=== PATIENT | male | born 1995 | race Caucasian/White ===

== ENCOUNTER → 2020-12-15 | Outpatient (CLI) | payer OTHER | END | disposition home or self-care (01) | LOC: RESCLI 08:40 | PROVIDERS: ATTEND Student in an Organized Health Care Education/Training Program | DX: R20.0 Anesthesia of skin (principal); F32.9 Major depressive disorder, single episode, unspecified; Z88.8 Allergy status to other drugs, medicaments and biological substances; J30.2 Other seasonal allergic rhinitis; Z79.899 Other long term (current) drug therapy ==

== ENCOUNTER → 2021-01-04 | Outpatient (CLI) | payer OTHER ==
[2021-01-04 08:29] LABS: BASO % 0.2 % (0.0-1.0); EOS % 0.7 % (1.0-4.0); HEMATOCRIT 41.4 % (42.0-52.0); LYMPH # 2.7 10*3/uL (1.3-4.4); LYMPH % 46.9 % (27.0-41.0); MEAN CELL VOLUME 90.6 fl (80.0-94.0); MEAN CORPUSCULAR HGB 30.4 pg (27.0-31.0); MEAN CORPUSCULAR HGB CONC 33.6 g/dl (33.0-37.0); MEAN PLATELET VOLUME 10.9 fl (9.6-12.3); MONO # 0.3 10*3/uL (0.1-1.0); NEUT # 2.6 10*3/uL (2.3-7.9); PLATELET COUNT AUTOMATED 275 10*3/uL (130-400); RED BLOOD COUNT 4.57 10*6/uL (4.50-5.90); RED CELL DISTRI WIDTH 11.6 % (0-14.5); WHITE BLOOD COUNT 5.7 10*3/uL (4.8-10.8)
[2021-01-04 08:45] LABS: BUN 8 mg/dl (7-24); CHLORIDE 107 mmol/L (98-107); CHOLESTEROL 201 mg/dL (<200); CREATININE 0.82 mg/dL (0.70-1.30); LDL CHOLESTEROL 135 mg/dL (9-159); POTASSIUM 3.8 mmol/L (3.5-5.1); SGOT/AST 18 IU/L (3-35); SGPT/ALT 39 U/L (12-78); SODIUM 140 mmol/L (136-145); TOTAL PROTEIN 7.5 gm/dL (6.4-8.2); TRIGLYCERIDES 75 mg/dl (<150)
[2021-01-04 08:54] LABS: ALKALINE PHOSPHATASE 58 U/L (45-117)
[2021-01-04 09:58] LABS: VITAMIN D, 25-HYDROXY 13.2 ng/mL (30-100)
== END | disposition home or self-care (01) ==
LOC: LAB 08:12
PROVIDERS: Student in an Organized Health Care Education/Training Program; ATTEND Family Medicine
DX: R20.0 Anesthesia of skin (principal); Z79.899 Other long term (current) drug therapy

== ENCOUNTER → 2021-01-19 | Outpatient (CLI) | payer OTHER | END | disposition home or self-care (01) | LOC: RESCLI 01:08 | PROVIDERS: ATTEND Internal Medicine | DX: E55.9 Vitamin D deficiency, unspecified (principal); Z79.899 Other long term (current) drug therapy ==

== ENCOUNTER 2023-11-20 10:26 | Emergency (ER) | payer SELFPAY ==
[~2023-11-20] VITALS: Ht 175.2 cm; Wt 113.4 kg
[2023-11-20 12:13] LABS: BASO % 0.1 % (0.0-1.0); EOS # 0.2 10*3/uL (0.0-0.4); EOS % 2.7 % (1.0-4.0); HEMATOCRIT 43.5 % (42.0-52.0); LYMPH # 3.1 10*3/uL (1.3-4.4); LYMPH % 43.8 % (27.0-41.0); MEAN CELL VOLUME 91.4 fl (80.0-94.0); MEAN CORPUSCULAR HGB 30.9 pg (27.0-31.0); MEAN CORPUSCULAR HGB CONC 33.8 g/dl (33.0-37.0); MEAN PLATELET VOLUME 11.2 fl (9.6-12.3); MONO # 0.4 10*3/uL (0.1-1.0); MONO % 6.2 % (3.0-9.0); NEUT # 3.3 10*3/uL (2.3-7.9); NEUT % 46.9 % (47.0-73.0); PLATELET COUNT AUTOMATED 260 10*3/uL (130-400); RED BLOOD COUNT 4.76 10*6/uL (4.50-5.90); RED CELL DISTRI WIDTH 11.5 % (0-14.5)
[2023-11-20 12:37] LABS: BUN 6 mg/dl (9-23); CHLORIDE 104 mmol/L (98-107); LIPASE 26 U/L (12-53); POTASSIUM 3.5 mmol/L (3.4-5.1)
[2023-11-20 13:27] LABS: BILIRUBIN Negative (Negative); BLOOD Negative (Negative); CLARITY Clear (Clear); COLOR Yellow (Yellow); GLUCOSE Negative (Negative); KETONE Trace (Negative); LEUKO ESTERASE Negative (Negative); NITRITE Negative (Negative); SPECIFIC GRAVITY 1.015 (1.001-1.030); UROBILINOGEN 0.2 E.U./dl (0.0-1.0)
[2023-11-20 13:50] LABS: EPITHELIAL CELLS 0-2
[2023-11-20] MEDS ORDERED: Ondansetron4 MG PO (14:22)
== END 2023-11-20 14:38 | disposition home or self-care (01) ==
LOC: ED 10:26
PROVIDERS: Nurse Practitioner Family
DX: N50.812 Left testicular pain (principal); R53.83 Other fatigue; R20.0 Anesthesia of skin; R11.0 Nausea; Z20.2 Contact with and (suspected) exposure to infections with a predominantly sexual mode of transmission